=== PATIENT | female | born 1965 | race Caucasian/White ===

== ENCOUNTER 2022-04-04 17:23 | Inpatient (IN) | payer MEDICARE, MEDICAID ==
[~2022-04-04] VITALS: Ht 162.6 cm; Wt 81.2 kg
[~2022-04-04 17:23] MED LIST: BUPR150T3 PO; QUET100T PO
[2022-04-04] MEDS ORDERED: LORazepam 2 MG TABLET PO ONE (17:45)
[2022-04-04 18:04] LABS: COVID AG,FIA SOURCE NASOPHARYNGEAL
[2022-04-04 18:07] LABS: BASOPHILS % (AUTO) 0.5 % (0.0-2.0); EOSINOPHILS % (AUTO) 0.8 % (1.0-6.0); HEMATOCRIT 38.9 % (36-46); HEMOGLOBIN 12.9 g/dL (12.0-16.0); LYMPHOCYTES # (AUTO) 1.4 K/uL (1.0-4.8); LYMPHOCYTES % (AUTO) 11.7 % (22.0-44.0); MEAN CORPUSCULAR HEMOGLOBIN 28.5 pg (26.0-34.0); MEAN CORPUSCULAR HGB CONC 33.2 G/dL (31.0-37.0); MEAN CORPUSCULAR VOLUME 86 fL (80-100); MONOCYTES # (AUTO) 0.9 K/uL (0.1-1.0); MONOCYTES % (AUTO) 7.3 % (2.0-9.0); NEUTROPHILS # (AUTO) 9.4 K/uL (1.8-7.7); NEUTROPHILS % (AUTO) 79.7 % (40.0-70.0); PLATELET COUNT (AUTO) 277 K/uL (150-450); RED BLOOD CELL COUNT(AUTO) 4.53 MIL/uL (4.00-5.20); RED CELL DISTRIBUTION WIDTH 13.9 % (11.5-14.5)
[2022-04-04 18:14] LABS: ANION GAP 6 mmol/L (8-16); CALCIUM, TOTAL 9.6 mg/dL (8.8-10.5); CARBON DIOXIDE 27 mmol/L (22-29); CHLORIDE 105 mmol/L (98-107); CREATININE 1.06 mg/dL (0.60-1.30); GLUCOSE,RANDOM 106 mg/dL (70-110); POTASSIUM 3.7 mmol/L (3.5-5.1); SODIUM SERUM 138 mmol/L (136-145); UREA NITROGEN, BLOOD 16 mg/dL (7-18)
[2022-04-04] MEDS ORDERED: ZOLPIDEM TARTRATE 10 MG TABLET PO PRN (18:15)
[2022-04-04 18:16] LABS: GLOMERULAR FILTR. RATE CALC 54 mL/min (>60)
[2022-04-04 18:20] LABS: ALANINE AMINOTRANSFERASE 37 U/L (12-78); ALBUMIN 3.9 g/dL (3.4-5.0); ALKALINE PHOSPHATASE 116 U/L (46-116); ASPARTATE AMINOTRANSFERASE 25 U/L (15-37); BILIRUBIN,TOTAL 0.3 mg/dL (0.1-1.0); TOTAL PROTEIN, SERUM 7.5 g/dL (6.4-8.2)
[2022-04-04] MEDS: OLANZapine 5 MG RAPDIS TABLET PO PRN (19:48)
[2022-04-05] MEDS: OLANZapine 5 MG RAPDIS TABLET PO PRN ×2 (06:29→14:43)
[2022-04-05] MEDS: LORazepam 2 MG TABLET PO PRN ×3 (06:29→21:45)
[2022-04-05 21:51] VITALS: BP 113/66
[2022-04-06] MEDS ORDERED: PETROLATUM,WHITE 28 GM JELLY TP PRN (06:00)
[2022-04-06] MEDS ORDERED: BENZOCAINE/MENTHOL LOZENGE PO PRN (06:00)
[2022-04-06] MEDS ORDERED: MAGNESIUM HYDROXIDE SUSPENSION 30 ML UDCUP PO PRN ×2 (06:00→18:00)
[2022-04-06] MEDS ORDERED: ALBUTEROL SULFATE HFA 90 MCG/PUFF 8 GM INHALER IH PRN (06:00)
[2022-04-06] MEDS ORDERED: ACETAMINOPHEN 325 MG TABLET PO PRN ×2 (06:00→18:00)
[2022-04-06] MEDS ORDERED: BACITRACIN 28 GM OINTMENT TP PRN (06:00)
[2022-04-06] MEDS ORDERED: CloNIDine HCL 0.1 MG TABLET PO PRN (06:00)
[2022-04-06] MEDS ORDERED: ONDANSETRON HCL 4 MG TABLET PO PRN (06:00)
[2022-04-06] MEDS ORDERED: LOPERAMIDE HCL 2 MG CAPSULE PO PRN ×2 (06:00→18:00)
[2022-04-06] MEDS ORDERED: MAG HYDROX/AL HYDROX/SIMETH ES 30 ML SUSPENSION UDCUP PO PRN ×2 (06:00→18:00)
[2022-04-06] MEDS ORDERED: DOCUSATE SODIUM 100 MG CAPSULE PO PRN (06:00)
[2022-04-06] MEDS ORDERED: OMEPRAZOLE 20 MG CAPSULE PO PRN (06:00)
[2022-04-06 08:21] VITALS: BP 138/76
[2022-04-06] MEDS: OLANZapine 5 MG RAPDIS TABLET PO PRN ×2 (08:26→13:29)
[2022-04-06] MEDS: LORazepam 2 MG TABLET PO PRN ×2 (08:26→13:29)
[2022-04-06 16:06] VITALS: BP 101/76
[2022-04-06] MEDS ORDERED: TUBERCULIN, PURIFIED PROTEIN DERIVATIVE 5 TU/0.1 ML SYRINGE ID ONE (18:00)
[2022-04-06] MEDS ORDERED: PROMETHAZINE HCL 25 MG TABLET PO PRN (18:00)
[2022-04-06] MEDS ORDERED: HydrOXYzine PAMOATE 50 MG CAPSULE PO PRN (18:00)
[2022-04-06] MEDS ORDERED: GuaiFENesin/D-METHORPHAN [SUGAR-FREE] 200-20MG/10 ML SYRUP UDCUP PO PRN (18:00)
[2022-04-06] MEDS: MELATONIN 5 MG TABLET PO SCH (20:53)
[2022-04-06] MEDS: DIVALPROEX SODIUM 500 MG ER TABLET PO SCH (20:53)
[2022-04-06] MEDS ORDERED: OLANZapine 5 MG RAPDIS TABLET PO SCH (21:00)
[2022-04-07 06:36] LABS: HEMOGLOBIN A1C 5.2 % (3.8-5.6)
[2022-04-07 06:57] LABS: CHOL/HDL RATIO 4.6 (3.9-5.7); FREE T4 (FREE THYROXINE) 1.11 ng/dL (0.76-1.46); THYROID STIMULATING HORMONE 2.5 uIU/mL (0.36-3.74)
[2022-04-07 09:09] VITALS: BP 124/91
[2022-04-07] MEDS: MULTIVITAMINS WITH MINERALS, THERAPEUTIC TABLET PO SCH (11:11)
[2022-04-07] MEDS: FOLIC ACID 1 MG TABLET PO SCH (11:12)
[2022-04-07] MEDS: IBUPROFEN 600 MG TABLET PO PRN (11:12)
[2022-04-07] MEDS: THIAMINE 100 MG TABLET PO SCH ×2 (11:12→17:11)
[2022-04-07] MEDS: LORazepam 2 MG TABLET PO PRN ×2 (11:12→17:18)
[2022-04-07] MEDS: NALTREXONE HCL 50 MG TABLET PO SCH (11:13)
[2022-04-07] MEDS: OMEGA-3/DHA/EPA/FISH OIL 1,000 MG CAPSULE PO SCH (11:14)
[2022-04-07] MEDS ORDERED: QUEtiapine FUMARATE 100 MG TABLET PO PRN (16:30)
[2022-04-07] MEDS: QUEtiapine FUMARATE 300 MG TABLET PO SCH (20:39)
[2022-04-07] MEDS: MELATONIN 5 MG TABLET PO SCH (20:39)
[2022-04-07] MEDS: DIVALPROEX SODIUM 500 MG ER TABLET PO SCH (20:39)
[2022-04-07] MEDS ORDERED: OLANZapine 10 MG RAPDIS TABLET PO SCH (21:00)
[2022-04-08 08:00] VITALS: BP 97/56
[2022-04-08] MEDS: BuPROPion HCL XL 150 MG ER TABLET PO SCH (08:37)
[2022-04-08] MEDS: FOLIC ACID 1 MG TABLET PO SCH (08:37)
[2022-04-08] MEDS: THIAMINE 100 MG TABLET PO SCH ×2 (08:37→16:46)
[2022-04-08] MEDS: OMEGA-3/DHA/EPA/FISH OIL 1,000 MG CAPSULE PO SCH (08:37)
[2022-04-08] MEDS: MULTIVITAMINS WITH MINERALS, THERAPEUTIC TABLET PO SCH (08:37)
[2022-04-08] MEDS: NALTREXONE HCL 50 MG TABLET PO SCH (08:37)
[2022-04-08] MEDS: LORazepam 2 MG TABLET PO PRN (08:39)
[2022-04-08 08:43] VITALS: BP 116/60
[2022-04-08] MEDS: IBUPROFEN 600 MG TABLET PO PRN ×3 (08:43→20:52)
[2022-04-08] MEDS ORDERED: MELA5TAB40 PO (15:24)
[2022-04-08] MEDS ORDERED: NALT50TA PO (15:24)
[2022-04-08] MEDS ORDERED: BUPR-49 PO (15:24)
[2022-04-08] MEDS ORDERED: QUET300T19 PO (15:24)
[2022-04-08] MEDS ORDERED: DIVA-80 PO (15:24)
[2022-04-08] MEDS ORDERED: OMEG-135 PO (15:24)
[2022-04-08 16:00] VITALS: BP 102/55
[2022-04-08] MEDS: QUEtiapine FUMARATE 300 MG TABLET PO SCH (20:10)
[2022-04-08] MEDS: MELATONIN 5 MG TABLET PO SCH (20:10)
[2022-04-08] MEDS: DIVALPROEX SODIUM 500 MG ER TABLET PO SCH (20:11)
[2022-04-08 20:52] VITALS: BP 115/64
[2022-04-09 08:00] VITALS: BP 97/66
[2022-04-09] MEDS: OMEGA-3/DHA/EPA/FISH OIL 1,000 MG CAPSULE PO SCH (08:38)
[2022-04-09] MEDS: NALTREXONE HCL 50 MG TABLET PO SCH (08:38)
[2022-04-09] MEDS: BuPROPion HCL XL 150 MG ER TABLET PO SCH (08:38)
[2022-04-09] MEDS: FOLIC ACID 1 MG TABLET PO SCH (08:38)
[2022-04-09] MEDS: THIAMINE 100 MG TABLET PO SCH (08:38)
[2022-04-09] MEDS: MULTIVITAMINS WITH MINERALS, THERAPEUTIC TABLET PO SCH (08:38)
[2022-04-09] MEDS ORDERED: QUEtiapine FUMARATE 300 MG TABLET PO ONE (10:15)
[2022-04-09 16:36] VITALS: BP 141/77
== END 2022-04-09 16:30 | disposition home or self-care (01) | DRG 885 ==
LOC: EMS 17:25 → 3EC 04-05 20:39
PROVIDERS: ADMIT Psychiatry & Neurology Psychiatry; ATTEND Psychiatry & Neurology Psychiatry
DX: F25.9 Schizoaffective disorder, unspecified (principal); Z20.822 Contact with and (suspected) exposure to COVID-19; E66.9 Obesity, unspecified; F41.9 Anxiety disorder, unspecified; F60.0 Paranoid personality disorder; G47.00 Insomnia, unspecified; K59.00 Constipation, unspecified; Z55.9 Problems related to education and literacy, unspecified; Z72.0 Tobacco use; Z68.30 Body mass index [BMI] 30.0-30.9, adult; Z59.9 Problem related to housing and economic circumstances, unspecified; Z63.9 Problem related to primary support group, unspecified; Z65.3 Problems related to other legal circumstances; Z91.199 Patient's noncompliance with other medical treatment and regimen due to unspecified reason
CPT/HCPCS: 80053; 80061; 83036; 84439; 84443; 85025; 86592; 99285; G0480; Q9967

== ENCOUNTER 2024-12-28 23:49 | Emergency (ER) | payer OTHER ==
[~2024-12-28] VITALS: Ht 157.5 cm; Wt 79.5 kg
[~2024-12-28 23:49] MED LIST changes: +BUPR-49 PO; -BUPR150T3 PO; +DIVA-153 PO; +MELA5TAB40 PO; +NALT50TA6 PO; +OMEG-135 PO; -QUET100T PO; +QUET300T19 PO
[2024-12-29 00:25] VITALS: BP 135/91; PULSE 104; RESP 18; O2SAT 98
== END 2024-12-29 01:31 | disposition left against medical advice (07) ==
LOC: EMS 23:56
DX: M79.671 Pain in right foot (principal); Z53.21 Procedure and treatment not carried out due to patient leaving prior to being seen by health care provider